=== PATIENT | female | born 1940 | race Asian ===

== ENCOUNTER 2018-04-05 16:49 | Emergency (ER) | payer MEDICARE, MEDICAID ==
[~2018-04-05] VITALS: Ht 149.9 cm; Wt 52.6 kg
[2018-04-05 17:01] VITALS: BP_SYST 161
[2018-04-05 18:26] LABS: BILIRUBIN,URINE NEGATIVE (NEGATIVE); BLOOD, URINE NEGATIVE (NEGATIVE); CLARITY/URINE HAZY (CLEAR); COLOR,URINE YELLOW (YELLOW); GLUCOSE,URINE 1+ (NEGATIVE); KETONES,URINE NEGATIVE (NEGATIVE); LEUKOCYTE ESTERASE ,URINE 1+ (NEGATIVE); NITRITE, URINE NEGATIVE (NEGATIVE); PROTEIN URINE TRACE (NEGATIVE); UROBILINOGEN,URINE 0.2 (0.2-1.0)
[2018-04-05 18:36] LABS: BACTERIA,URINE FEW /HPF (None Seen); MUCUS,URINE 1+ /LPF (None Seen); RBC,URINE 0-3 /HPF (0-3)
[2018-04-05 19:31] LABS: BASOPHILS % (AUTO) 0.5 % (0.0-2.0); EOSINOPHILS # (AUTO) 0.1 K/uL (0.0-0.4); EOSINOPHILS % (AUTO) 0.7 % (0.0-4.0); HEMOGLOBIN 14.5 g/dL (12.0-16.0); LYMPHOCYTES # (AUTO) 2.3 K/uL (1.0-5.5); LYMPHOCYTES % (AUTO) 24.5 % (20.5-51.5); MEAN CORPUSCULAR HEMOGLOBIN 29 pg (27-31); MEAN CORPUSCULAR HGB CONC 33 % (32-36); MEAN CORPUSCULAR VOLUME 87 fL (79.0-98.0); MONOCYTES # (AUTO) 0.5 K/uL (0.0-1.0); MONOCYTES % (AUTO) 5.4 % (1.7-9.3); NEUTROPHILS # (AUTO) 6.3 K/uL (1.8-7.7); NEUTROPHILS % (AUTO) 68.9 % (40.0-70.0); PLATELET COUNT (AUTO) 194 K/uL (130-430); RED BLOOD CELL COUNT(AUTO) 5.08 MIL/uL (4.2-6.2); RED CELL DISTRIBUTION WIDTH 12.5 % (9.0-15.0); WHITE BLOOD COUNT (AUTO) 9.2 K/uL (4.8-10.8)
[2018-04-05 19:38] LABS: POTASSIUM 4.5 mmol/L (3.5-5.1); SODIUM SERUM 132 mmol/L (136-145)
[2018-04-05 19:39] LABS: ALANINE AMINOTRANSFERASE 23 U/L (12-78); ALBUMIN 3.6 g/dL (3.4-4.8); ANION GAP 9 (5-15); ASPARTATE AMINOTRANSFERASE 21 U/L (10-37); CALCIUM 9.1 mg/dL (8.4-11.0); CHLORIDE 100 mmol/L (98-107); CREATININE 0.76 mg/dL (0.55-1.30); GLUCOSE 203 mg/dL (70-99); TOTAL BILIRUBIN 0.8 mg/dL (0.0-1.0); UREA NITROGEN, BLOOD 24 mg/dL (8-21)
[2018-04-05] MEDS ORDERED: LOSA50TA3 PO (21:03)
[2018-04-05] MEDS ORDERED: LIP40 PO (21:03)
[2018-04-05] MEDS ORDERED: METO50TA7 PO (21:03)
[2018-04-05] MEDS ORDERED: VITD2000 PO (21:03)
[2018-04-05] MEDS ORDERED: LIDO1ADH48 TP (21:03)
[2018-04-05] MEDS ORDERED: ASPI-1155 PO (21:03)
[2018-04-05] MEDS ORDERED: GLU500 PO (21:03)
[2018-04-05] MEDS ORDERED: IBUP-1969 PO (21:03)
[2018-04-05] MEDS ORDERED: cefTRIAXone 1 GM IVPB PREMIX 50 ML IV ONE (21:15)
[2018-04-05 21:41] VITALS: BP_SYST 144
== END 2018-04-05 21:41 | disposition home or self-care (01) ==
LOC: SED 16:49
DX: A41.9 Sepsis, unspecified organism (principal); N39.0 Urinary tract infection, site not specified; R42 Dizziness and giddiness; I95.9 Hypotension, unspecified; I10 Essential (primary) hypertension; E11.9 Type 2 diabetes mellitus without complications; Z79.82 Long term (current) use of aspirin; Z79.899 Other long term (current) drug therapy
CPT/HCPCS: 36415; 70450; 80053; 81000; 85025; 87086; 96374; 99291; J0696

== ENCOUNTER 2021-06-21 18:22 | Emergency (ER) | payer MEDICARE, MEDICAID ==
[~2021-06-21] VITALS: Ht 147.3 cm; Wt 54.4 kg
[~2021-06-21 18:22] MED LIST: ASPI-1155 PO; GLU500 PO; IBUP-1969 PO; LIDO1ADH48 TP; LIP40 PO; LOSA50TA3 PO; METO50TA7 PO; VITD2000 PO
--- NOTE | 2021-06-21 18:28 | NUR ---
md fam at bedside assessing pt.
--- NOTE | 2021-06-21 18:28 | NUR ---
Patient to ER bed 02 to gown for evaluation. Side rails up.
[2021-06-21 18:29] VITALS: BP_SYST 195
--- NOTE | 2021-06-21 18:55 | NUR ---
PT BACK FROM CT SCAN.
[2021-06-21 19:37] VITALS: BP_SYST 158
--- NOTE | 2021-06-21 19:38 | NUR ---
DR LAGUNAS AT BEDSIDE FOR DISPOSITION
[2021-06-21] MEDS ORDERED: IBUPROFEN 600 MG TABLET PO ONE (19:45)
[2021-06-21] MEDS ORDERED: HYDR-3917 PO (19:47)
--- NOTE | 2021-06-21 19:56 | NUR ---
Patient given written and verbal discharge instructions and verbalizes understanding. ER MD discussed with patient the results and treatment provided. Patient in stable condition. ID arm band removed. Rx of NORCO given. Patient educated on pain management and to follow up with PMD. Pain Scale . Opportunity for questions provided and answered. Medication side effect fact sheet provided.
== END 2021-06-21 19:56 | disposition home or self-care (01) ==
LOC: SED 18:22
DX: S00.83XA Contusion of other part of head, initial encounter (principal); I10 Essential (primary) hypertension; E11.9 Type 2 diabetes mellitus without complications; Z79.82 Long term (current) use of aspirin; Z79.899 Other long term (current) drug therapy; W01.10XA Fall on same level from slipping, tripping and stumbling with subsequent striking against unspecified object, initial encounter; Y93.89 Activity, other specified; Y92.89 Other specified places as the place of occurrence of the external cause; Y99.8 Other external cause status
CPT/HCPCS: 70450-TC; 71250-TC; 76376; 99284

== ENCOUNTER 2023-08-30 15:42 | Emergency (ER) | payer MEDICARE, MEDICAID ==
[~2023-08-30] VITALS: Ht 149.9 cm; Wt 44.5 kg
[~2023-08-30 15:42] MED LIST changes: +HYDR-3917 PO; +LOSA-413 PO; -LOSA50TA3 PO
[2023-08-30 15:56] VITALS: BP_SYST 132; PULSE 68; RESP 18; TEMP 98.3; O2SAT 97
[2023-08-30] MEDS: DIPHTH,PERTUSS(ACELL),TET VAC 0.5 ML VIAL (Tdap) I.M. ONE (17:33)
[2023-08-30] MEDS: cephALEXin 500 MG CAPSULE PO ONE (17:35)
[2023-08-30] MEDS ORDERED: MOXI3DRO13 OP ×2 (19:15→19:17)
[2023-08-30 19:35] VITALS: BP_SYST 132; PULSE 68; RESP 18; TEMP 98.3; O2SAT 97
== END 2023-08-30 19:34 | disposition home or self-care (01) ==
LOC: SED 15:42
DX: S05.32XA Ocular laceration without prolapse or loss of intraocular tissue, left eye, initial encounter (principal); Z23 Encounter for immunization; E11.9 Type 2 diabetes mellitus without complications; I10 Essential (primary) hypertension; E78.5 Hyperlipidemia, unspecified; Z98.890 Other specified postprocedural states; Z79.899 Other long term (current) drug therapy; Z79.2 Long term (current) use of antibiotics; W22.8XXA Striking against or struck by other objects, initial encounter; Y93.H2 Activity, gardening and landscaping; Y92.89 Other specified places as the place of occurrence of the external cause; Y99.8 Other external cause status
CPT/HCPCS: 70480; 90715; 99285